=== PATIENT | female | born 1980 | race American Indian/Alaskan Native ===

== ENCOUNTER 2016-11-07 12:03 | Emergency (ER) | payer OTHER ==
[2016-11-07 12:17] VITALS: BP 142/72
--- NOTE | 2016-11-07 12:17 | Emergency Department Report ---
Chief Complaint: Abdominal Pain Stated Complaint: ABDOMINAL/HEAD PAIN Time Seen by Provider: 11/07/16 12:12 - HPI History of Present Illness: pt c/o lower abd pain x 6 days - ROS Review of Systems: + nausea, + decrease in appetite - Exam Physical Exam: pt is obese, abd is soft suprapubic tenderness MSE screening note: Focused history and physical exam performed. Due to findings the following was ordered: ekg, labs ED Disposition for MSE Condition: Stable
[2016-11-07 12:48] LABS: Hematocrit 37.8 % (30.3-42.9); Hemoglobin 12.3 gm/dl (10.1-14.3); Mean Corpuscular HGB Conc 33 % (30-34); Mean Corpuscular Hemoglobin 27 pg (28-32); Mean Corpuscular Volume 82 fl (79-97); Platelet Count 363 K/mm3 (140-440); Red Blood Count 4.62 M/mm3 (3.65-5.03); Red Cell Distribution Width 14.5 % (13.2-15.2)
[2016-11-07 13:08] LABS: Albumin 2.9 g/dL (3.9-5); Albumin/Globulin Ratio 0.6 %; BUN/Creatinine Ratio 5.45; Bilirubin,Total 0.9 mg/dL (0.1-1.2); Calcium 8.9 mg/dL (8.4-10.2); Chloride 96.4 mmol/L (98-107); Potassium 3.9 mmol/L (3.6-5.0); Total Protein 7.9 g/dL (6.3-8.2)
[2016-11-07 14:01] LABS: Basophils % (Manual) 0 % (0.0-1.8); Blastocytes % (Manual) 0 %; Diff Status Complete; Eosinophils % (Manual) 0 % (0.0-4.3); Platelet Estimate Consistent w Auto; RBC Morphology Normal; Total Cells Counted Percent 0
--- NOTE | 2016-11-08 15:47 | ED Elopement Review ---
ED Pt Elopement review - Results review Lab results: Laboratory Tests 11/07/16 11/07/16 11/07/16 12:35 12:35 12:35 WBC 22.0 H RBC 4.62 Hgb 12.3 Hct 37.8 MCV 82 MCH 27 L MCHC 33 RDW 14.5 Plt Count 363 Add Manual Diff Complete Total Counted 100 Seg Neuts % (Manual) 84.0 H Band Neutrophils % 1.0 Lymphocytes % (Manual) 15.0 Reactive Lymphs % (Man) 0 Monocytes % (Manual) 0 Eosinophils % (Manual) 0 Basophils % (Manual) 0 Metamyelocytes % 0 Myelocytes % 0 Promyelocytes % 0 Blast Cells % 0 Nucleated RBC % Not Reportable Seg Neutrophils # Man 18.5 H Band Neutrophils # 0.2 Lymphocytes # (Manual) 3.3 Abs React Lymphs (Man) 0.0 Monocytes # (Manual) 0.0 Eosinophils # (Manual) 0.0 Basophils # (Manual) 0.0 Metamyelocytes # 0.0 Myelocytes # 0.0 Promyelocytes # 0.0 Blast Cells # 0.0 WBC Morphology Not Reportable Hypersegmented Neuts Not Reportable Hyposegmented Neuts Not Reportable Hypogranular Neuts Not Reportable Smudge Cells Not Reportable Toxic Granulation Not Reportable Toxic Vacuolation Not Reportable Dohle Bodies Not Reportable Pelger-Huet Anomaly Not Reportable Tamy Rods Not Reportable Platelet Estimate Consistent w auto Clumped Platelets Not Reportable Plt Clumps, EDTA Not Reportable Large Platelets Not Reportable Giant Platelets Not Reportable Platelet Satelliting Not Reportable Plt Morphology Comment Not Reportable RBC Morphology Normal Dimorphic RBCs Not Reportable Polychromasia Not Reportable Hypochromasia Not Reportable Poikilocytosis Not Reportable Anisocytosis Not Reportable Microcytosis Not Reportable Macrocytosis Not Reportable Spherocytes Not Reportable Pappenheimer Bodies Not Reportable Sickle Cells Not Reportable Target Cells Not Reportable Tear Drop Cells Not Reportable Ovalocytes Not Reportable Helmet Cells Not Reportable [place] Bodies Not Reportable [place] Rings Not Reportable You Cells Not Reportable Bite Cells Not Reportable Crenated Cell Not Reportable Elliptocytes Not Reportable Acanthocytes (Spur) Not Reportable Rouleaux Not Reportable Hemoglobin C Crystals Not Reportable Schistocytes Not Reportable Malaria parasites Not Reportable Adalid Bodies Not Reportable Hem Pathologist Commnt No Sodium 134 L Potassium 3.9 Chloride 96.4 L Carbon Dioxide 20 L Anion Gap 22 BUN 6 L Creatinine 1.1 Estimated GFR 56 BUN/Creatinine Ratio 5.45 Glucose 180 H Calcium 8.9 Total Bilirubin 0.90 AST 19 ALT 22 Alkaline Phosphatase 77 Total Protein 7.9 Albumin 2.9 L Albumin/Globulin Ratio 0.6 Lipase 21 HCG, Qual Negative - Call Back decision Pt Call Back Decision: Call pt to return to ED [facility] (Tachycardia, Elevated WBC - needs to return)
== END 2016-11-07 22:00 | disposition left against medical advice (07) ==
LOC: ED 12:03
DX: R51 Headache (principal); R10.9 Unspecified abdominal pain; Z53.21 Procedure and treatment not carried out due to patient leaving prior to being seen by health care provider
CPT/HCPCS: 36415; 80053; 83690; 84703; 85007; 85025; 93005; 93010